=== PATIENT | male | born 1960 | race Caucasian/White ===

== ENCOUNTER 2017-05-22 21:59 | Inpatient (IN) | payer OTHER ==
[~2017-05-22] VITALS: Ht 177.8 cm; Wt 96.2 kg
[2017-05-22 23:22] LABS: BASOPHIL % 2.5 % (0-2); PLATELET COUNT 392 x10^3mcL (130-400)
[2017-05-22 23:40] LABS: CALCIUM 9.3 mg/dL (8.5-10.1); CARBON DIOXIDE 23.3 mmol/L (21-32); CHLORIDE SERUM 100 mmol/L (98-107); GFR1 > 60 mL/min; GLUCOSE SERUM 99 mg/dL (74-106); SODIUM SERUM 136 mmol/L (136-145)
[2017-05-23] VITALS (8 sets, daily range): BP systolic 116–141; BP diastolic 72–96
[2017-05-23] LABS: ALBUMIN 4.3 g/dL (3.4-5.0); ALKALINE PHOSPHATASE 98 U/L (46-116); ALT/SGPT 27 U/L (16-63); AST/SGOT 22 U/L (15-37); BILIRUBIN TOTAL 0.3 mg/dL (0.20-1.00)
[2017-05-23 00:01] LABS: TOTAL PROTEIN, SERUM 8.9 g/dL (6.4-8.2)
[2017-05-23] MEDS ORDERED: LISINOPRIL1 PO1 (01:02)
[2017-05-23] MEDS ORDERED: PLA75 (01:02)
[2017-05-23] MEDS ORDERED: KEPPRA500 MG (01:03)
[2017-05-23] MEDS ORDERED: DILAUDID2 MG (01:04)
[2017-05-23] MEDS ORDERED: AMBIEN5 MG (01:04)
[2017-05-23] MEDS ORDERED: ATIVAN0.5 M1 (01:04)
[2017-05-23 02:37] LABS: MAGNESIUM 2.2 mg/dL (1.8-2.4)
[2017-05-23 02:48] LABS: FREE T4 0.73 ng/dL (0.76-1.46); T4(THYROXINE) 6.6 ug/dL (4.7-13.3)
[2017-05-23 04:10] LABS: T3 TOTAL 1.25 ng/mL
[2017-05-23 06:27] LABS: BASOPHIL % 0.6 % (0-2); PLATELET COUNT 341 x10^3mcL (130-400)
[2017-05-23 06:39] LABS: RED CELL DISTRIBUTION WIDTH 18.9 % (11.5-14.5)
[2017-05-23 06:48] LABS: CALCIUM 8.9 mg/dL (8.5-10.1); CARBON DIOXIDE 25.4 mmol/L (21-32); CHLORIDE SERUM 103 mmol/L (98-107); CREATININE SERUM 0.9 mg/dL (0.7-1.3); GFR1 > 60 mL/min; GLUCOSE SERUM 94 mg/dL (74-106); POTASSIUM SERUM 4.4 mmol/L (3.5-5.1); SODIUM SERUM 139 mmol/L (136-145)
[2017-05-24 05:28] VITALS: BP 130/75
[2017-05-24 06:44] LABS: BASOPHIL % 0.4 % (0-2); PLATELET COUNT 301 x10^3mcL (130-400)
[2017-05-24 06:51] LABS: RED CELL DISTRIBUTION WIDTH 18.9 % (11.5-14.5)
[2017-05-24 06:56] LABS: CALCIUM 8.9 mg/dL (8.5-10.1); CARBON DIOXIDE 28.4 mmol/L (21-32); CHLORIDE SERUM 101 mmol/L (98-107); CREATININE SERUM 0.8 mg/dL (0.7-1.3); GFR1 > 60 mL/min; GLUCOSE SERUM 91 mg/dL (74-106); PHOSPHOROUS 3.4 mg/dL (2.5-4.9); POTASSIUM SERUM 4.6 mmol/L (3.5-5.1); SODIUM SERUM 135 mmol/L (136-145)
[2017-05-24] MEDS ORDERED: GOOD SENSE OMEP20 MG PO (08:57)
[2017-05-24] MEDS ORDERED: COLACE100 MG PO (08:57)
[2017-05-24] MEDS ORDERED: ATIVAN2 MG PO (09:03)
[2017-05-24] MEDS ORDERED: ATIVAN1 MG PO (09:03)
[2017-05-24] MEDS ORDERED: NATURE'S BLEND F1 MG PO (09:04)
[2017-05-24] MEDS ORDERED: THI100 PO (09:04)
[2017-05-24 11:38] VITALS: BP 126/85
== END 2017-05-24 12:27 | disposition home or self-care (01) | DRG 243 ==
LOC: ED 21:59 → DU 05-23 00:44 → MU 05-23 00:44 → DU 05-23 01:26 → MU 05-23 23:36
PROVIDERS: Emergency Medicine; ADMIT Family Medicine
DX: K21.9 Gastro-esophageal reflux disease without esophagitis (principal); G92 Toxic encephalopathy; F10.129 Alcohol abuse with intoxication, unspecified; I10 Essential (primary) hypertension; E78.5 Hyperlipidemia, unspecified; G40.909 Epilepsy, unspecified, not intractable, without status epilepticus; I25.10 Atherosclerotic heart disease of native coronary artery without angina pectoris; G89.29 Other chronic pain; I25.2 Old myocardial infarction; J44.9 Chronic obstructive pulmonary disease, unspecified; F41.9 Anxiety disorder, unspecified; Y90.9 Presence of alcohol in blood, level not specified; X58.XXXA Exposure to other specified factors, initial encounter; S60.221A Contusion of right hand, initial encounter; E11.9 Type 2 diabetes mellitus without complications; E83.39 Other disorders of phosphorus metabolism; Y93.89 Activity, other specified; Y92.89 Other specified places as the place of occurrence of the external cause; Y99.8 Other external cause status; Z86.73 Personal history of transient ischemic attack (TIA), and cerebral infarction without residual deficits; Z95.5 Presence of coronary angioplasty implant and graft; Z87.891 Personal history of nicotine dependence; Z68.30 Body mass index [BMI] 30.0-30.9, adult
CPT/HCPCS: 83880; 84439; 90658; G0480; J1170; J2060; J2270; J2405; J7030; Q0092

== ENCOUNTER 2017-06-08 10:28 | Observation (INO) | payer OTHER ==
[~2017-06-08] VITALS: Ht 177.8 cm; Wt 106.0 kg
[~2017-06-08 10:28] MED LIST: AMBIEN5 MG; ATIVAN0.5 M1; ATIVAN1 MG PO; ATIVAN2 MG PO; COLACE100 MG PO; DILAUDID2 MG; GOOD SENSE OMEP20 MG PO; KEPPRA500 MG; LISINOPRIL1 PO1; NATURE'S BLEND F1 MG PO; PLA75; THI100 PO
[2017-06-08] MEDS ORDERED: V10 PO (10:57)
[2017-06-08] MEDS ORDERED: PLA75 PO (10:57)
[2017-06-08] MEDS ORDERED: LORAZEPAM0.5 MG PO (10:57)
[2017-06-08] MEDS ORDERED: KEPPRA XR500 M2 PO (10:58)
[2017-06-08] MEDS ORDERED: ASPIR 8181 MG PO (10:58)
[2017-06-08] MEDS ORDERED: AMBIEN5 MG PO (10:59)
[2017-06-08] MEDS ORDERED: DILAUDID4 MG PO (10:59)
[2017-06-08 11:20] LABS: BASOPHIL % 1.2 % (0-2)
[2017-06-08 11:25] LABS: CALCIUM 8.6 mg/dL (8.5-10.1); CARBON DIOXIDE 24.7 mmol/L (21-32); CHLORIDE SERUM 103 mmol/L (98-107); CREATININE SERUM 0.9 mg/dL (0.7-1.3); GFR1 > 60 mL/min; GLUCOSE SERUM 127 mg/dL (74-106); POTASSIUM SERUM 4.1 mmol/L (3.5-5.1); SODIUM SERUM 138 mmol/L (136-145)
[2017-06-08 11:26] LABS: PLATELET COUNT 451 x10^3mcL (130-400); RED CELL DISTRIBUTION WIDTH 18.5 % (11.5-14.5)
[2017-06-08 11:31] LABS: ALBUMIN 3.7 g/dL (3.4-5.0); ALKALINE PHOSPHATASE 88 U/L (46-116); ALT/SGPT 26 U/L (16-63); AST/SGOT 11 U/L (15-37); BILIRUBIN TOTAL 0.5 mg/dL (0.20-1.00); TOTAL PROTEIN, SERUM 7.9 g/dL (6.4-8.2)
[2017-06-08 15:00] LABS: MAGNESIUM 1.8 mg/dL (1.8-2.4); PHOSPHOROUS 2.5 mg/dL (2.5-4.9)
[2017-06-08 15:07] LABS: FREE T4 0.75 ng/dL (0.76-1.46); FREE THYROXINE INDEX 1.9 ug/dL (1.4-4.5); T3 TOTAL 1.02 ng/mL; T4(THYROXINE) 5.6 ug/dL (4.7-13.3)
[2017-06-08 15:09] VITALS: BP 163/105
[2017-06-08 17:34] VITALS: BP 135/87
[2017-06-08 17:42] VITALS: BP 163/105
[2017-06-08 20:36] VITALS: BP 122/75
[2017-06-08 21:46] LABS: microscopic required? NO
[2017-06-08 21:53] LABS: urine erythrocyte NEGATIVE (NEGATIVE)
[2017-06-08 22:01] LABS: AMPHETAMINE QUAL UR NONE DETECTED (NEG <=1000)
[2017-06-09 05:14] VITALS: BP 141/90
[2017-06-09 09:18] VITALS: BP 141/90
== END 2017-06-09 09:35 | disposition home or self-care (01) | DRG 243 ==
LOC: ED 10:28 → DU 14:09
PROVIDERS: Emergency Medicine; ADMIT Student in an Organized Health Care Education/Training Program
DX: K21.9 Gastro-esophageal reflux disease without esophagitis (principal); I10 Essential (primary) hypertension; I25.10 Atherosclerotic heart disease of native coronary artery without angina pectoris; G89.4 Chronic pain syndrome; G47.00 Insomnia, unspecified; F41.9 Anxiety disorder, unspecified; G40.909 Epilepsy, unspecified, not intractable, without status epilepticus; E78.5 Hyperlipidemia, unspecified; I25.2 Old myocardial infarction; Z68.33 Body mass index [BMI] 33.0-33.9, adult; Z95.5 Presence of coronary angioplasty implant and graft
CPT/HCPCS: 83880; 84439; 94150; G0378; J1170; J2060; J2405; J7030; J7620; Q0092

== ENCOUNTER 2019-01-31 12:59 | Inpatient (IN) | payer OTHER ==
[~2019-01-31] VITALS: Ht 177.8 cm; Wt 77.1 kg
[~2019-01-31 12:59] MED LIST changes: +AMBIEN5 MG PO; +ASPIR 8181 MG PO; +DILAUDID4 MG PO; +KEPPRA XR500 M2 PO; +LORAZEPAM0.5 MG PO; +PLA75 PO; +V10 PO
[2019-01-31 13:00] VITALS: Ht 177.8 cm; Wt 77.1 kg
--- NOTE | 2019-01-31 13:09 | NUR ---
PATIENT PRESENTS TO ED WITH C/O POUNDING HEADACHE AND POUNDING CHEST PAIN SINCE LAST NIGHT. PATIENT AT TIME OF ASSESSMENT WAS AAOX3, UNAWARE OF PLACE. STS THAT HE CANNOT STOP SHAKING, IS SEEN SHAKING AT BEDSIDE. STS HE IS FEELING HOT, TEMP SHOWS PATIENT IS AFEBRILE. DR. ALEXANDRE AT BEDSIDE PERFORMED MSE
--- NOTE | 2019-01-31 13:45 | NUR ---
PATIENT STS HIS PAIN HAS DECREASED TO 9/10 BUT STILL FEELS PAIN. MD ALONSO
--- NOTE | 2019-01-31 13:53 | NUR ---
PATIENT TO BE SENT TO CT
[2019-01-31 13:55] LABS: BASOPHIL % 0.8 % (0-2); PLATELET COUNT 362 x10^3mcL (130-400); RED CELL DISTRIBUTION WIDTH 14.6 % (11.5-14.5)
--- NOTE | 2019-01-31 14:04 | NUR ---
PATIENT BACK FROM CT
[2019-01-31 14:12] LABS: CALCIUM 9.5 mg/dL (8.5-10.1); CHLORIDE SERUM 103 mmol/L (98-107); GFR1 > 60 mL/min; GLUCOSE SERUM 97 mg/dL (74-106); POTASSIUM SERUM 4.3 mmol/L (3.5-5.1); SODIUM SERUM 139 mmol/L (136-145)
[2019-01-31 14:17] LABS: ALBUMIN 3.9 g/dL (3.4-5.0); ALKALINE PHOSPHATASE 79 U/L (46-116); ALT/SGPT 29 U/L (16-63); AST/SGOT 13 U/L (15-37); BILIRUBIN TOTAL 0.32 mg/dL (0.20-1.00)
--- NOTE | 2019-01-31 15:02 | NUR ---
PT RESTING AT BEDSIDE IN NAD
--- NOTE | 2019-01-31 15:43 | NUR ---
REPORT OFF TO LOURDES GILL
--- NOTE | 2019-01-31 15:53 | NUR ---
RECEIVED PT VIA [employer] FROM E/D, ACCOMPANIED BY RN AND TRANSPORTER. PT A/A/O X 4, CALM, COOPERATIVE; C/O CONSTANT POUNDING H/A 9/10 W/ PHOTOPHOBIC REACTION TO LIGHT, INCREASING PAIN; SEIZURE PRECAUTIONS IN PLACE D/T HX (LAST SEIZURE WAS 6 YEARS AGO). AMBULATORY, NO GAIT OR BALANCE IMPAIRMENT NOTED. ON TELE # 18, SR W/ PVC'S, HR 83, C/O CONSTANT THROBBING C/P 9/10 OVER XYPHOID AREA, EXACERBATED BY TOUCHING AREA, TWISTING, AND COLD, MILDLY RELIEVED BY RESTING AND PAIN MEDICATIONS. NO ACUTE RESPIRATORY DISTRESS NOTED. IV SITE LAC 18G, CDI. ORIENTED PT TO ROOM, BED CONTROLS, CALL LIGHT SYSTEM. PADDED SIDE RAILS UP X 2, BED IN LOW POSITION. WILL ENDORSE TO LOURDES WAGGONER.
--- NOTE | 2019-01-31 16:37 | NUR ---
PT C/O 04/07 CP AND HINDS. MEDICATED WITH MORPHINE PER EMAR. PT RHYTHM ON MONITOR SR WITH PVC'S. DR CHOW NOTIFIED OF PT CONDITIONS. NO NEW ORDERS RECIEVED AT THIS TIME. WILL MONITOR.
[2019-01-31 16:39] LABS: PHOSPHOROUS 3.8 mg/dL (2.5-4.9)
[2019-01-31 16:40] LABS: CHOLESTEROL/HDL RATIO 2.6
[2019-01-31 16:41] VITALS: BP 145/92
[2019-01-31 16:44] LABS: T3 TOTAL 1.04 ng/mL
[2019-01-31 16:47] LABS: FREE THYROXINE INDEX 2.6 ug/dL (1.4-4.5)
--- NOTE | 2019-01-31 19:25 | NUR ---
RECIEVED PT RESTING COMFORTABLY IN BED WITH NO ACUTE DISTRESS AT THIS TIME. PT DENIES CHEST PAIN OR RESPIRATORY DISTRESS AT THIS TIME, ASSESSMENT PERFORMED AT THIS TIME, IV TO THE LAC 18 G, SAFRETY PRECAUTIONS IN PLACE WILL CONTINUE TO MONITOR
[2019-01-31 21:41] VITALS: BP 131/88
[2019-01-31 21:43] VITALS: BP 145/92
--- NOTE | 2019-01-31 21:54 | NUR ---
PT STATING SEVERE HINDS ADMINISTERED DILAUDID PER PHYSICIANS ORDER, WILL CONTINUE TO MONITOR.
--- NOTE | 2019-01-31 23:00 | NUR ---
PT SITTING ON SIDE OF BED STATING FEELINGS OF ANXIOUSNESS, ADMINISTERED ATIVAN PER ORDER (SEE MAR). WILL CONTINUE TO MONITOR.
--- NOTE | 2019-01-31 23:30 | NUR ---
PT SLEEPING IN BED WITH NO ACUTE DISTRESS AT THIS TIME, RESPIRATIONS EVEN AND UNLABORED, SAFETY PRECAUTIONS IN PLACE, WILL CONTINUE TO MONITOR
--- NOTE | 2019-02-01 01:23 | NUR ---
PT SLEEPING IN BED WITH NO ACUTE DISTRESS AT THIS TIME. RESPIRATIONS EVEN AND UNLABORED, SAFETY PRECAUTIONS IN PLACE, WILL CONTINUE TO MONITOR
--- NOTE | 2019-02-01 02:08 | NUR ---
PT REPORTS THROBBING PAIN HAS RETURNED AND IS REQUESTING MORPHINE, ADMINISTERED PER ORDER (SEE MAR), WILL CONTINUE TO MONITOR
--- NOTE | 2019-02-01 04:20 | NUR ---
PT RESTING IN BED AND REQUESTED A MILK, NO ACUTE DISTRESS AT THIS TIME, PT DENIES CHEST PAIN OR SOB AT THIS TIME, ALL NEEDS ATTENDED TO AT THIS TIME, SAFETY PRECAUTIONS IN PLACE, WILL CONTINUE TO MONITOR
--- NOTE | 2019-02-01 05:08 | NUR ---
PT HAD EPISODES OF PAIN THAT WERE CONTROLLED WITH ADMINISTRATION OF PAIN DILAUDID AND MORPHINE, PT HAD NO EPISODES OF RESPIRATORY DISTRESS, PT WAS A/OX4 THROUGH SHIFT, WILL CONTINUE TO MONITOR AND ENDORSE CARE TO ONCOMING RN
[2019-02-01 06:46] VITALS: BP 120/82
[2019-02-01 07:03] LABS: BASOPHIL % 0.5 % (0-2); PLATELET COUNT 293 x10^3mcL (130-400)
[2019-02-01 07:05] LABS: CALCIUM 9.5 mg/dL (8.5-10.1); CHLORIDE SERUM 103 mmol/L (98-107); CREATININE SERUM 0.8 mg/dL (0.7-1.3); GFR1 > 60 mL/min; GLUCOSE SERUM 95 mg/dL (74-106); PHOSPHOROUS 4.9 mg/dL (2.5-4.9); POTASSIUM SERUM 4.1 mmol/L (3.5-5.1); SODIUM SERUM 139 mmol/L (136-145)
--- NOTE | 2019-02-01 07:05 | NUR ---
VT RESTING IN BED WITH NO C/O PAIN, DISTRESS, OR SOB. TELE MONITOR#[id number] CONNECTED TO PT. DENIES CP OR PRESSURE. IV INTACT AND PATENT WITH NO REDNESS OR INFLAMMATION. SAFETY PRECAUTIONS IN PLACE, CALL LIGHT WITHIN REACH, WILL MONITOR.
[2019-02-01 07:07] LABS: RED CELL DISTRIBUTION WIDTH 14.6 % (11.5-14.5)
[2019-02-01 09:08] VITALS: BP 129/85
--- NOTE | 2019-02-01 09:36 | NUR ---
PT C/O 04/07 HINDS, MEDICATED WITH MORPHINE PER EMAR. WILL REASSESS
--- NOTE | 2019-02-01 10:49 | NUR ---
PT C/O 04/07 HINDS, MEDICATED WITH DILAUDID PER EMAR. WILL REASSESS.
[2019-02-01 12:53] VITALS: BP 138/78
--- NOTE | 2019-02-01 14:13 | NUR ---
PT C/O 8/10 HINDS, MEDICATED WITH MORPHINE PER EMAR. COLD COMPRESS APLIED TO HEAD THROUGHOUT SHIFT. WILL REASSESS
--- NOTE | 2019-02-01 16:26 | NUR ---
PT C/O 03/07 HINDS, MEDICATED WITH DILAUDID PER EMAR, WILL REASSESS. VS WNL.
[2019-02-01 17:19] VITALS: BP 119/82
--- NOTE | 2019-02-01 18:26 | NUR ---
PT REPORTS ANXIETY, MEDICATED WITH ATIVAN PER EMAR. OK BY CHARGE NURSE ARLETTE.
--- NOTE | 2019-02-01 18:56 | NUR ---
PT STABLE. VS WNL. NO DISTRESS OR SOB NOTED. IV INTACT AND PATENT WITH NO REDNESS. PAIN MANAGEMENT PROVIDED THROUGHOUT ALL SHIFT. SAFETY PRECAUTIONS IN PLACE, CALL LIGHT WITHIN REACH, WILL ENDORSE CASRES TO NIGHT NURSE.
--- NOTE | 2019-02-01 19:25 | NUR ---
RECIEVED PT RESTING IN BED WITH NO ACUTE DISTRESS AT THIS TIME, PT COMPLAINS OF CONSTANT THROBBING CHEST PRESSURE AND HINDS, MEDICATED WITH PRN MORPHINE PER ORDER, ASSESSMENT PERFORMED AT THIS TIME, PT IS A/O X 4 NO COMPLAINTS OF DIZZINESS, 18 G IV TO THE LAC SALINE LOCKED FLUSHES WELL, NO SIGNS OF REDNESS OR SWELLING, SAFETY PRECAUTIONS IN PLACE, WILL CONTINUE TO MONITOR
--- NOTE | 2019-02-01 19:41 | NUR ---
FAXED REQUEST FOR RELEASE OF RECORDS FOR MOST RECENT ECHO, PER DR CHOW AND DR CARD. ENDORSED BASEBALL INSPECTOR TO F/U WITH CONFIRMATION.
[2019-02-01 20:32] VITALS: BP 130/80
--- NOTE | 2019-02-01 22:58 | NUR ---
PT COMPLAINING OF CONSTANT SEVER PAIN TO THE CHEST AND HINDS REQUESTING PAIN MEDICATION, ADMINISTERED DILAUDID PRN PER PHYSICIANS ORDER, SAFETY PRECAUTIONS MAINTAINED, WILL CONTINUE TO MONITOR
--- NOTE | 2019-02-02 00:45 | NUR ---
PT SLEEPING IN BED WITH NO ACUTE DISTRESS AT THIS TIME, SAFETY PRECAUTIONS IN PLACE WILL CONTINUE TO MONITOR.
--- NOTE | 2019-02-02 02:50 | NUR ---
PT RESTING IN BED ON CELL PHONE, PT STATES PAIN IS WELL CONTROLLED AT THIS TIME, PT DENIES SOB AT THIS TIME, SAFETY PRECAUTIONS IN PLACE, WILL CONTINUE TO MONITOR
[2019-02-02 05:02] VITALS: BP 123/83
--- NOTE | 2019-02-02 05:50 | NUR ---
PT HAD MULTIPLE EPISODES OF PAIN THROUGH THE SHIFT WHICH WERE TREATED WITH PRN MORPHINE AND DILAUDID PER ORDER, PT DENIED SOB THROUGH SHIFT BUT, ALL PATIENT NEEDS WERE ATTENDEDE TO, WILL RAQUELNUE TO MONITOR AND ENDORSE CARE TO ONCOMING RN
[2019-02-02 06:28] LABS: CHLORIDE SERUM 103 mmol/L (98-107); GFR1 > 60 mL/min; GLUCOSE SERUM 98 mg/dL (74-106); PHOSPHOROUS 4.9 mg/dL (2.5-4.9); POTASSIUM SERUM 4.9 mmol/L (3.5-5.1); SODIUM SERUM 141 mmol/L (136-145)
[2019-02-02 06:41] LABS: BASOPHIL % 0.3 % (0-2); PLATELET COUNT 330 x10^3mcL (130-400)
[2019-02-02 06:45] LABS: RED CELL DISTRIBUTION WIDTH 14.7 % (11.5-14.5)
--- NOTE | 2019-02-02 07:20 | NUR ---
RECEIVED PT FROM [facility] RN. Lizz/JUAN C. TELE#18. RESPIRATIONS EQUAL AND UNLABORED ON RA. DENIES SOB. PT DENIES CHEST PAIN AT THIS TIME. PT C/O HINDS THROBBING. PT STATES PAIN HAS NOT IMPROVED SINCE RECEIVING PAIN MEDICATION. DENIES DIZZINESS OR BLURRED VISION. IV TO LAC SALINE LOCKED. NO REDNESS OR SWELLING NOTED. WILL CONTINUE TO MONITOR. CALL LIGHT IN REACH. BED IN LOWEST POSITION. SEIZURE PRECAUTIONS IN PLACE.
[2019-02-02 07:44] VITALS: BP 129/80
--- NOTE | 2019-02-02 08:49 | NUR ---
PT IN BED RESTING. NO ACUTE RESP DISTRESS NOTED ON RA. GIVEN PO MEDS. TOLERATED WELL. PT C/O ANXIETY. MEDICATED PER EMAR. PT C/O CHEST PRESSURE AND HINDS 10/10. MEDICATED PER EMAR. PT REFUSING NITRO PT STATES IT MAKES MY HINDS WORSE. IV TO LAC FLUSHED WELL. NO REDNESS OR SWELLING NOTED. WILL CONTINUE TO MONITOR. CALL LIGHT IN REACH. BED IN LOWEST POSITION.
--- NOTE | 2019-02-02 10:43 | NUR ---
PT IN BED RESTING. NO ACUTE RESP DISTRESS NOTED. PT C/O HINDS 04/07. PT STATES THE MORPHINE ONLY HELPS FOR ABOUT 30 MINUTES AND THEN MY HINDS COMES BACK. MEDICATED PER EMAR. WILL CONTINUE TO MONITOR. CALL LIGHT IN REACH. BED IN LOWEST POSITION.
[2019-02-02 11:03] VITALS: BP 134/74
--- NOTE | 2019-02-02 12:56 | NUR ---
PT SITTING UP IN BED. NO ACUTE RESP DISTRESS NOTED ON RA. PT C/O HINDS 10/10 THROBBING. MEDICATED PER EMAR. GIVEN PO MEDS. TOLERATED WELL. IV FLUSHED WELL. NO REDNESS OR SWELLING NOTED. IV ANTIBIOTICS INFUSING ORDERED. WILL CONTINUE TO MONITOR. CALL LIGHT IN REACH. BED IN LOWEST POSITION.
[2019-02-02 15:41] VITALS: BP 116/68
--- NOTE | 2019-02-02 16:14 | NUR ---
RECEIVED ORDERS TO TRANSFER TO MED SURG. TELE#18 RETURNED TO PUBLIC HEALTH PHYSICIAN KATHY. PT STATES HINDS IS TOLERABLE AT THIS TIME. WILL CONTINUE TO MONITOR. CALL LIGHT IN REACH. BED IN LOWEST POSITION.
--- NOTE | 2019-02-02 16:53 | NUR ---
PT SITTING UP IN BED. NO ACUTE RESP DISTRESS NOTED ON RA. PT C/O HINDS 10/ THROBBING. PT STATES I FEEL LIKE I AM CRAWLING OUT OF MY SKIN, EVERYTIME I COUGH MY HEAD HURTS AND IT WONT STOP. MEDICATED PER EMAR. GIVEN PO MEDS. TOLERATED WELL. WILL CONTINUE TO MONITOR. CALL LIGHT IN REACH. BED IN LOWEST POSITION.
--- NOTE | 2019-02-02 18:51 | NUR ---
PT SITTING UP IN BED. PT DENIES CHEST PAIN AT THIS TIME. NO ACUTE RESP DISTRESS NOTED ON RA. PT STILL C/O OF HINDS 05/07 THROBING, SINCE RECEIVING PAIN MEDICATION. IV SALINE LOCKED. NO REDNESS OR SWELLING NOTED. WILL ENDORSE TO [facility] [employer] RESTORATION LABOR RN. CALL LIGHT IN REACH. BED IN LOWEST POSITION.
--- NOTE | 2019-02-02 19:28 | NUR ---
PT SEEN, ALERT AND ORIENTED, C/O OF HEADACHE, SZ PRECAUTION IN PLACE, SPEECH CLEAR, DENIES DIZZINESS, BREATHING EVEN AND UNLABORED, NO SOB, LUNG SOUNDS CLEAR, ON ROOM AIR WITH NO RESP DISTRESS NOTED, MEDSURG PT, DENIES CHEST PAIN AT THIS TIME, SL TO LAC, PULSES PALPABLE, EDEMA NOTED TO BLE, GENERALIZED WEAKNESS, ABLE TO MOVE ALL EXT, ABD SOFT WITH ACTIVE BS, NO BM AT THIS TIME, DENIES ABD PAIN, VOIDING FREELY, DILAUDID PO GIVEN FOR HEADACHE, NO DISTRESS NOTED, WILL KEEP TO MONITIOR.
[2019-02-02 21:07] VITALS: BP 93/65
--- NOTE | 2019-02-03 05:42 | NUR ---
PT ASLEEP BUT EASILY AROUSABLE, C/O OF ON AND OFF CHEST PAIN, CHEST DISCOMFORT AND HEADACHE DURING THE NIGHT, MEDICATED WITH DILAUDID PO AND MORPHINE IVP WITH MOD RELIEF, SZ PRECAUTION IN PLACE, NO DISTRESS NOTED, WILL KEEP TO MONITOR.
[2019-02-03 05:57] VITALS: BP 122/76
[2019-02-03 06:40] LABS: BASOPHIL % 0.6 % (0-2); PLATELET COUNT 333 x10^3mcL (130-400); RED CELL DISTRIBUTION WIDTH 14.4 % (11.5-14.5)
[2019-02-03 06:56] LABS: CALCIUM 9.5 mg/dL (8.5-10.1); CARBON DIOXIDE 30.3 mmol/L (21-32); CHLORIDE SERUM 102 mmol/L (98-107); GFR1 > 60 mL/min; GLUCOSE SERUM 92 mg/dL (74-106); MAGNESIUM 1.9 mg/dL (1.8-2.4); PHOSPHOROUS 4.9 mg/dL (2.5-4.9); POTASSIUM SERUM 4.6 mmol/L (3.5-5.1); SODIUM SERUM 140 mmol/L (136-145)
--- NOTE | 2019-02-03 07:15 | NUR ---
RECEIVED PT FROM COMMERCIAL PARTS PROFESSIONAL. PT AWAKE, ALERT. A/OX4. PT COMPLAINING OF HEADACHE ASKING FOR DILAUDID. PAIN /. WILL MEDICATE. DENIES CHEST PAIN. PT ON ROOM AIR WITH NO RESP DISTRESS NOTED. IV ACCESS LAC C/D/I, SALINE LOCKED. ACTIVE BS NOTED. NO ISSUES IDENTIFIED WITH ELIMINATION. PT HAS GENERALIZED WEAKNESS. PERIPHERAL PULSES PALPABLE. SAFETY MEASURES IN PLACE. BED LOW AND LOCKED. CALL LIGHT WITHIN REACH.
--- NOTE | 2019-02-03 08:44 | NUR ---
PT COMPLAINING OF HEADACHE PAIN, ASKING FOR DILAUDID PO. MED ADMINISTERED ORDERED PRN.
--- NOTE | 2019-02-03 09:00 | NUR ---
PT REPORTS RELIEF AFTER MED ADMINISTRATION. PT ANXIOUS TO GO HOME, STATES HIS RIDE WILL BE HERE AT 1000 AND NEEDS TO LEAVE BY THEN.
[2019-02-03 09:49] VITALS: BP 129/83
[2019-02-03 09:55] VITALS: BP 129/83
--- NOTE | 2019-02-03 14:11 | NUR ---
ECHOCARDIOGRAM NOT DONE-DISCHARGED
== END 2019-02-03 10:04 | disposition home or self-care (01) | DRG 140 ==
LOC: ED 12:59 → DU 15:16 → MU 02-02 15:54
PROVIDERS: Emergency Medicine; ADMIT Internal Medicine
DX: J44.0 Chronic obstructive pulmonary disease with (acute) lower respiratory infection (principal); F11.20 Opioid dependence, uncomplicated; R07.89 Other chest pain; I25.10 Atherosclerotic heart disease of native coronary artery without angina pectoris; G44.59 Other complicated headache syndrome; J44.1 Chronic obstructive pulmonary disease with (acute) exacerbation; J20.9 Acute bronchitis, unspecified; I10 Essential (primary) hypertension; E78.00 Pure hypercholesterolemia, unspecified; J32.0 Chronic maxillary sinusitis; K21.9 Gastro-esophageal reflux disease without esophagitis; G47.00 Insomnia, unspecified; J32.1 Chronic frontal sinusitis; F41.9 Anxiety disorder, unspecified; E78.5 Hyperlipidemia, unspecified; G40.909 Epilepsy, unspecified, not intractable, without status epilepticus; I25.2 Old myocardial infarction; Z79.82 Long term (current) use of aspirin; Z68.24 Body mass index [BMI] 24.0-24.9, adult; Z95.5 Presence of coronary angioplasty implant and graft; Z79.1 Long term (current) use of non-steroidal anti-inflammatories (NSAID); Z86.73 Personal history of transient ischemic attack (TIA), and cerebral infarction without residual deficits; Z79.899 Other long term (current) drug therapy; Z80.1 Family history of malignant neoplasm of trachea, bronchus and lung; Z82.49 Family history of ischemic heart disease and other diseases of the circulatory system; Z84.89 Family history of other specified conditions
CPT/HCPCS: 83880; 84439; 94150; G0378; J1170; J1940; J1956; J2270; J2405; J7030; J7620; Q0092